=== PATIENT | male | born 1975 | race Caucasian/White ===

== ENCOUNTER 2017-09-23 08:25 | Observation (INO) ==
[2017-09-23] MEDS ORDERED: Ondansetron 4 MG/2 ML VIAL IVP ONE (08:42)
[2017-09-23] MEDS ORDERED: Isovue-370 500 ML INFUS..BTL IV ONE (08:42)
[2017-09-23] MEDS ORDERED: 0.9 % Sodium Chloride 1,000 ML IVC ONE ×2 (08:42→09:21)
[2017-09-23 09:09] LABS: Basophils # 0.1 K/mcL (0.0-0.2); Eosinophils # 0.1 K/mcL (0.0-0.6); Eosinophils % 2.2 %; Hematocrit 45.3 % (37.5-50.1); Hemoglobin 16.4 g/dL (12.9-16.9); Lymphocytes # 1.8 K/mcL (0.6-4.6); Lymphocytes % 34.6 %; Mean Corpuscular HGB Conc 36.2 g/dL (31.6-35.5); Mean Corpuscular Hemoglobin 31.3 pg (28.0-33.3); Mean Corpuscular Volume 86.5 fL (83.0-100.0); Mean Platelet Volume 11.1 fL (9.4-12.4); Monocytes # 0.5 K/mcL (0.0-1.3); Neutrophils # 2.6 K/mcL (1.6-8.9); Platelet Count 198 K/mcL (140-400); Red Blood Count 5.24 M/mcL (4.19-5.50); Red Cell Distribution Width 13.4 % (11.5-14.5); Segmented Neutrophils % 51.2 %
--- NOTE | 2017-09-23 09:11 | Emergency Department Note ---
Disposition Clinical Impression: DKA (diabetic ketoacidoses) Qualifiers: Diabetes mellitus type: type 2 Diabetes mellitus complication detail: without coma Qualified Code(s): E11.10 - Type 2 diabetes mellitus with ketoacidosis without coma Disposition: Admitted As Inpatient Condition: Fair Forms: ED Satisfaction Letter Time of Disposition: 11:38 General Adult HPI - General Chief complaint: ED Nausea/Vomiting/Diarrhea Stated complaint: Nausea, blisters on tongue, wt loss, urinary freq Time Seen by Provider: 09/23/17 08:31 Source: patient Limitations: no limitations Nursing Notes Reviewed: Yes Vital Signs Reviewed: Yes - History of Present Illness HPI Narrative: 42-year-old male with no past medical history but a strong family history of diabetes presents with polyuria and polydipsia for the last month. Patient has not 10 pound weight loss, has mild 7 out of 10 crampy aching epigastric pain. Patient reports nausea and emesis, is also some diarrhea as well. Patient states that he is not a daily drinker. Patient has had no fevers or chills. Onset (ago): hour(s) Pain Severity: moderate Pain Scale: 7 Improves with: nothing Worsens with: nothing Associated symptoms: Reports: nausea/vomiting. Denies: confusion, chest pain, cough, headaches, loss of appetite, shortness of breath Treatments Prior to Arrival: none - Related Data Home Medications Medication Instructions Recorded Confirmed Cyclobenzaprine [Flexeril] 10 mg PO Q8H PRN 09/23/17 09/23/17 Gabapentin [Neurontin] 600 mg PO TID PRN 09/23/17 09/23/17 HYDROcodone/Acet 5/325 mg [[place] 1 tab PO Q12H PRN 09/23/17 09/23/17 5-325 mg] Naproxen [Naprosyn] 500 mg PO Q12H PRN 09/23/17 09/23/17 Allergies Allergy/AdvReac Type Severity Reaction Status Date / Time sulfamethoxazole Allergy Rash Verified 09/23/17 08:27 [From Bactrim] trimethoprim [From Bactrim] Allergy Rash Verified 09/23/17 08:27 All systems ED: reviewed and negative except as stated. Review of Systems: As Per HPI Constitutional: Denies: fever Eyes: Denies: eye pain ENT ED: Denies: ear pain Cardiovascular: Denies: chest pain Respiratory: Denies: cough Gastrointestinal: Reports: as per HPI, abdominal pain, nausea, vomiting Genitourinary: Denies: urgency, dysuria Musculoskeletal: Denies: back pain Integumentary: Denies: rash Neurological: Denies: headache Psychiatric: Denies: anxiety Past Medical History - Past Medical History Attestation: Yes The following information was validated with the patient. Source: patient Medical history: Reports: no medical history Psychiatric history: Reports: no psych history - Social History Smoking Status: Current some day smoker Smokeless Tobacco Status: Yes Alcohol use: Reports: occasionally Drug use: Reports: none Physical Exam Constitutional: Dry mucous membranes. Appears uncomfortable Eyes: PERRLA, sclera anicteric ENT & Mouth: M dry papular inflammation with no sloughing or sores in the mouth. Neck: normal inspection, neck is supple Resp: CTA bilaterally, no resp distress CV: RRR, no m/g/r GI: normal inspection, soft, mild to moderate epigastric pain with no guarding or rigidity. Neuro: A&O3, CNII-XII grossly intact, LEES Skin: on limited exam, skin intact with no rashes or lesions - General Limitations: no limitations General appearance: alert, in no apparent distress Course Course Narrative: Patient with signs and symptoms consistent with possible diabetes with polydipsia and polyuria weight loss, we will check an Accu-Chek give basic lab work CBC BMP and reassess, also an EKG and basic lab work. - Reevaluation(s) Reevaluation #1: Patient with Hyperglycemia, acidosis and AG of 18, insulin gtt started admitted to medicine Dr Guillermo admitted for new onset diabetes and DKA. Time: 11:46 Vital Signs Temperature 98 F 09/23/17 08:27 Pulse Rate 111 09/23/17 08:27 Respiratory Rate 20 09/23/17 08:27 Blood Pressure 162/98 09/23/17 08:27 O2 Sat by Pulse Oximetry 98 09/23/17 08:27 Temperature 98 F 09/23/17 08:51 Pulse Rate 95 09/23/17 11:34 Respiratory Rate 16 09/23/17 11:34 Blood Pressure 125/85 09/23/17 11:34 O2 Sat by Pulse Oximetry 95 09/23/17 11:34 Oxygen Delivery Oxygen Delivery Room Air Medical Decision Making - Medical Records Medical records reviewed: Yes I reviewed the patient's medical records. - Lab Data Lab results reviewed: Yes I reviewed the patient's lab results. Result diagrams: 09/23/17 08:51 09/23/17 08:51 Lab Results 09/23/17 09/23/17 09/23/17 Range/Units 08:51 08:51 08:51 WBC 5.1 (4.3-11.1) K/mcL RBC 5.24 (4.19-5.50) M/mcL Hgb 16.4 (12.9-16.9) g/dL Hct 45.3 (37.5-50.1) % MCV 86.5 (83.0-100.0) fL MCH 31.3 (28.0-33.3) pg MCHC 36.2 H (31.6-35.5) g/dL RDW 13.4 (11.5-14.5) % Plt Count 198 (140-400) K/mcL MPV 11.1 (9.4-12.4) fL Immature Gran % 1.0 (0-4) % Seg Neutrophils % 51.2 % Lymphocytes % 34.6 % Monocytes % 10.0 % Eosinophils % 2.2 % Basophils % 1.0 % Neutrophils # 2.6 (1.6-8.9) K/mcL Lymphocytes # 1.8 (0.6-4.6) K/mcL Monocytes # 0.5 (0.0-1.3) K/mcL Eosinophils # 0.1 (0.0-0.6) K/mcL Basophils # 0.1 (0.0-0.2) K/mcL VBG pH (7.32-7.42) pH Units VBG pCO2 (41-51) mmHg VBG pO2 (25-50) mmHg VBG HCO3 (21-27) mEq/L Sodium 131 L (136-145) mEq/L Potassium 4.4 (3.5-5.1) mEq/L Chloride 97 L (98-107) mEq/L Carbon Dioxide 16 L (23-29) mEq/L BUN 11 (6-20) mg/dL Creatinine 0.83 (0.70-1.30) mg/dL Est GFR ( Amer) > 60 (> 60) Est GFR (Non-Af Amer) > 60 (> 60) BUN/Creatinine Ratio 13 (6-26) Glucose 590 H* (70-105) mg/dL Calculated Osmolality 299 (280-300) Calcium 9.5 (8.6-10.3) mg/dL Total Bilirubin 0.7 (0.3-1.0) mg/dL AST 15 (13-39) Units/L ALT 28 (7-52) Units/L Alkaline Phosphatase 172 H (34-104) Units/L Troponin I < 0.03 (< 0.04) ng/mL Serum Total Protein 6.5 (6.4-8.9) g/dL Albumin 4.2 (3.5-5.7) g/dL Globulin 2.3 L (2.4-3.5) g/dL Albumin/Globulin Ratio 1.8 (1.1-2.2) Lipase 46 (11-82) Units/L Beta-Hydroxybutyric Acd (0.02-0.27) mmol/L Urine Color (Yellow) Urine Clarity (Clear) Urine pH (5.0-8.0) pH Units Ur Specific [place] (1.010-1.025) Urine Protein (Neg-Trace) mg/dL Urine Glucose (UA) (Normal) mg/dL Urine Ketones (Negative) mg/dL Urine Blood (Negative) Urine Nitrite (Negative) Urine Bilirubin (Negative) Urine Urobilinogen (Normal) mg/dL Ur Leukocyte Esterase (Negative) Ur Culture Indicated? (NO) 09/23/17 09/23/17 09/23/17 Range/Units 09:33 09:54 10:00 WBC (4.3-11.1) K/mcL RBC (4.19-5.50) M/mcL Hgb (12.9-16.9) g/dL Hct (37.5-50.1) % MCV (83.0-100.0) fL MCH (28.0-33.3) pg MCHC (31.6-35.5) g/dL RDW (11.5-14.5) % Plt Count (140-400) K/mcL MPV (9.4-12.4) fL Immature Gran % (0-4) % Seg Neutrophils % % Lymphocytes % % Monocytes % % Eosinophils % % Basophils % % Neutrophils # (1.6-8.9) K/mcL Lymphocytes # (0.6-4.6) K/mcL Monocytes # (0.0-1.3) K/mcL Eosinophils # (0.0-0.6) K/mcL Basophils # (0.0-0.2) K/mcL VBG pH 7.29 L (7.32-7.42) pH Units VBG pCO2 40 L (41-51) mmHg VBG pO2 93 H (25-50) mmHg VBG HCO3 19 L (21-27) mEq/L Sodium (136-145) mEq/L Potassium (3.5-5.1) mEq/L Chloride (98-107) mEq/L Carbon Dioxide (23-29) mEq/L BUN (6-20) mg/dL Creatinine (0.70-1.30) mg/dL Est GFR ( Amer) (> 60) Est GFR (Non-Af Amer) (> 60) BUN/Creatinine Ratio (6-26) Glucose (70-105) mg/dL Calculated Osmolality (280-300) Calcium (8.6-10.3) mg/dL Total Bilirubin (0.3-1.0) mg/dL AST (13-39) Units/L ALT (7-52) Units/L Alkaline Phosphatase (34-104) Units/L Troponin I (< 0.04) ng/mL Serum Total Protein (6.4-8.9) g/dL Albumin (3.5-5.7) g/dL Globulin (2.4-3.5) g/dL Albumin/Globulin Ratio (1.1-2.2) Lipase (11-82) Units/L Beta-Hydroxybutyric Acd 1.47 H (0.02-0.27) mmol/L Urine Color Yellow (Yellow) Urine Clarity Clear (Clear) Urine pH 5.5 (5.0-8.0) pH Units Ur Specific [place] > 1.030 H (1.010-1.025) Urine Protein Negative (Neg-Trace) mg/dL Urine Glucose (UA) >=1000 H (Normal) mg/dL Urine Ketones 80 H (Negative) mg/dL Urine Blood Negative (Negative) Urine Nitrite Negative (Negative) Urine Bilirubin Negative (Negative) Urine Urobilinogen Normal (Normal) mg/dL Ur Leukocyte Esterase Negative (Negative) Ur Culture Indicated? NO (NO) - Radiology Data Radiology results reviewed: Yes I reviewed the patient's radiology results. Chest X-Ray 09/23/17 08:44 IMPRESSION: No acute abnormality. D/ / 09/23/2017 09:40:58 Amador Amato MD / luigi Interpreting Provider: Amador Amato MD Abdomen/Pelvis CT 09/23/17 10:00 IMPRESSION: 1. Fatty infiltration of the liver but no focal disease. 2. No acute gastrointestinal abnormality. Normal appendix. D/ / 09/23/2017 10:21:26 Joann Burris MD / Jessica Lynn Interpreting Provider: Joann Burris MD - EKG Data EKG #1 EKG attestation: Yes I reviewed and interpreted this EKG. EKG shows normal: sinus rhythm Rate: tachycardia (Sinus tachycardia [place] 133 QRS 90 QTC [address] segment elevations or depressions no T-wave inversions.)
[2017-09-23 09:21] LABS: Alanine Aminotransferase 28 Units/L (7-52); Albumin 4.2 g/dL (3.5-5.7); Albumin/Globulin Ratio 1.8 (1.1-2.2); Alkaline Phosphatase 172 Units/L (34-104); Aspartate Amino Transferase 15 Units/L (13-39); BUN/Creatinine Ratio 13 (6-26); Bilirubin,Total 0.7 mg/dL (0.3-1.0); Blood Urea Nitrogen 11 mg/dL (6-20); Calcium 9.5 mg/dL (8.6-10.3); Carbon Dioxide 16 mEq/L (23-29); Chloride 97 mEq/L (98-107); Globulin 2.3 g/dL (2.4-3.5); Glucose 590 mg/dL (70-105); Lipase 46 Units/L (11-82); Osmolality,Calculated 299 (280-300); Potassium 4.4 mEq/L (3.5-5.1); Sodium 131 mEq/L (136-145); Total Protein 6.5 g/dL (6.4-8.9); eGFR For African Americans > 60 (> 60); eGFR For Non-African Americans > 60 (> 60)
--- NOTE | 2017-09-23 10:03 | Emergency Department Note ---
Disposition Clinical Impression: DKA (diabetic ketoacidoses) Disposition: Admitted As Inpatient Condition: Fair Referrals: NONE,PCP [Primary Care Provider] - Forms: ED Satisfaction Letter General Adult HPI - General Chief complaint: ED Nausea/Vomiting/Diarrhea Stated complaint: Nausea, blisters on tongue, wt loss, urinary freq Time Seen by Provider: 09/23/17 08:31 Source: patient Limitations: no limitations - History of Present Illness Pain Scale: 7 - Related Data Home Medications Medication Instructions Recorded Confirmed Cyclobenzaprine [Flexeril] 10 mg PO Q8H PRN 09/23/17 09/23/17 Gabapentin [Neurontin] 600 mg PO TID PRN 09/23/17 09/23/17 HYDROcodone/Acet 5/325 mg [[place] 1 tab PO Q12H PRN 09/23/17 09/23/17 5-325 mg] Naproxen [Naprosyn] 500 mg PO Q12H PRN 09/23/17 09/23/17 Allergies Allergy/AdvReac Type Severity Reaction Status Date / Time sulfamethoxazole Allergy Rash Verified 09/23/17 08:27 [From Bactrim] trimethoprim [From Bactrim] Allergy Rash Verified 09/23/17 08:27 Past Medical History - Past Medical History Medical history: Reports: no medical history Psychiatric history: Reports: no psych history - Social History Smoking Status: Current some day smoker Smokeless Tobacco Status: Yes Alcohol use: Reports: occasionally Drug use: Reports: none Physical Exam - General Limitations: no limitations General appearance: alert, in no apparent distress Course Vital Signs Temperature 98 F 09/23/17 08:27 Pulse Rate 111 09/23/17 08:27 Respiratory Rate 20 09/23/17 08:27 Blood Pressure 162/98 09/23/17 08:27 O2 Sat by Pulse Oximetry 98 09/23/17 08:27 Temperature 98 F 09/23/17 08:51 Pulse Rate 95 09/23/17 11:34 Respiratory Rate 16 09/23/17 11:34 Blood Pressure 125/85 09/23/17 11:34 O2 Sat by Pulse Oximetry 95 09/23/17 11:34 Oxygen Delivery Oxygen Delivery Room Air Medical Decision Making - Lab Data Result diagrams: 09/23/17 08:51 09/23/17 08:51 Lab Results 09/23/17 09/23/17 09/23/17 Range/Units 08:51 08:51 08:51 WBC 5.1 (4.3-11.1) K/mcL RBC 5.24 (4.19-5.50) M/mcL Hgb 16.4 (12.9-16.9) g/dL Hct 45.3 (37.5-50.1) % MCV 86.5 (83.0-100.0) fL MCH 31.3 (28.0-33.3) pg MCHC 36.2 H (31.6-35.5) g/dL RDW 13.4 (11.5-14.5) % Plt Count 198 (140-400) K/mcL MPV 11.1 (9.4-12.4) fL Immature Gran % 1.0 (0-4) % Seg Neutrophils % 51.2 % Lymphocytes % 34.6 % Monocytes % 10.0 % Eosinophils % 2.2 % Basophils % 1.0 % Neutrophils # 2.6 (1.6-8.9) K/mcL Lymphocytes # 1.8 (0.6-4.6) K/mcL Monocytes # 0.5 (0.0-1.3) K/mcL Eosinophils # 0.1 (0.0-0.6) K/mcL Basophils # 0.1 (0.0-0.2) K/mcL VBG pH (7.32-7.42) pH Units VBG pCO2 (41-51) mmHg VBG pO2 (25-50) mmHg VBG HCO3 (21-27) mEq/L Sodium 131 L (136-145) mEq/L Potassium 4.4 (3.5-5.1) mEq/L Chloride 97 L (98-107) mEq/L Carbon Dioxide 16 L (23-29) mEq/L BUN 11 (6-20) mg/dL Creatinine 0.83 (0.70-1.30) mg/dL Est GFR ( Amer) > 60 (> 60) Est GFR (Non-Af Amer) > 60 (> 60) BUN/Creatinine Ratio 13 (6-26) Glucose 590 H* (70-105) mg/dL Calculated Osmolality 299 (280-300) Calcium 9.5 (8.6-10.3) mg/dL Total Bilirubin 0.7 (0.3-1.0) mg/dL AST 15 (13-39) Units/L ALT 28 (7-52) Units/L Alkaline Phosphatase 172 H (34-104) Units/L Troponin I < 0.03 (< 0.04) ng/mL Serum Total Protein 6.5 (6.4-8.9) g/dL Albumin 4.2 (3.5-5.7) g/dL Globulin 2.3 L (2.4-3.5) g/dL Albumin/Globulin Ratio 1.8 (1.1-2.2) Lipase 46 (11-82) Units/L Beta-Hydroxybutyric Acd (0.02-0.27) mmol/L Urine Color (Yellow) Urine Clarity (Clear) Urine pH (5.0-8.0) pH Units Ur Specific [place] (1.010-1.025) Urine Protein (Neg-Trace) mg/dL Urine Glucose (UA) (Normal) mg/dL Urine Ketones (Negative) mg/dL Urine Blood (Negative) Urine Nitrite (Negative) Urine Bilirubin (Negative) Urine Urobilinogen (Normal) mg/dL Ur Leukocyte Esterase (Negative) Ur Culture Indicated? (NO) 09/23/17 09/23/17 09/23/17 Range/Units 09:33 09:54 10:00 WBC (4.3-11.1) K/mcL RBC (4.19-5.50) M/mcL Hgb (12.9-16.9) g/dL Hct (37.5-50.1) % MCV (83.0-100.0) fL MCH (28.0-33.3) pg MCHC (31.6-35.5) g/dL RDW (11.5-14.5) % Plt Count (140-400) K/mcL MPV (9.4-12.4) fL Immature Gran % (0-4) % Seg Neutrophils % % Lymphocytes % % Monocytes % % Eosinophils % % Basophils % % Neutrophils # (1.6-8.9) K/mcL Lymphocytes # (0.6-4.6) K/mcL Monocytes # (0.0-1.3) K/mcL Eosinophils # (0.0-0.6) K/mcL Basophils # (0.0-0.2) K/mcL VBG pH 7.29 L (7.32-7.42) pH Units VBG pCO2 40 L (41-51) mmHg VBG pO2 93 H (25-50) mmHg VBG HCO3 19 L (21-27) mEq/L Sodium (136-145) mEq/L Potassium (3.5-5.1) mEq/L Chloride (98-107) mEq/L Carbon Dioxide (23-29) mEq/L BUN (6-20) mg/dL Creatinine (0.70-1.30) mg/dL Est GFR ( Amer) (> 60) Est GFR (Non-Af Amer) (> 60) BUN/Creatinine Ratio (6-26) Glucose (70-105) mg/dL Calculated Osmolality (280-300) Calcium (8.6-10.3) mg/dL Total Bilirubin (0.3-1.0) mg/dL AST (13-39) Units/L ALT (7-52) Units/L Alkaline Phosphatase (34-104) Units/L Troponin I (< 0.04) ng/mL Serum Total Protein (6.4-8.9) g/dL Albumin (3.5-5.7) g/dL Globulin (2.4-3.5) g/dL Albumin/Globulin Ratio (1.1-2.2) Lipase (11-82) Units/L Beta-Hydroxybutyric Acd 1.47 H (0.02-0.27) mmol/L Urine Color Yellow (Yellow) Urine Clarity Clear (Clear) Urine pH 5.5 (5.0-8.0) pH Units Ur Specific [place] > 1.030 H (1.010-1.025) Urine Protein Negative (Neg-Trace) mg/dL Urine Glucose (UA) >=1000 H (Normal) mg/dL Urine Ketones 80 H (Negative) mg/dL Urine Blood Negative (Negative) Urine Nitrite Negative (Negative) Urine Bilirubin Negative (Negative) Urine Urobilinogen Normal (Normal) mg/dL Ur Leukocyte Esterase Negative (Negative) Ur Culture Indicated? NO (NO) Critical Care Time Critical Care Time: Yes Total Critical Care Time: 35 Attestation: Critical care performed: Time is exclusive of separately billable procedures. Time includes: direct patient care, patient reassessment, coordination of patient care, interpretation of data (laboratory data, radiology data, and respiratory data), review of patient's medical records, medical consultation and documentation of patient care. Procedures included in critical care time: Procedures excluded from critical care time: Attestation Statement - Attestation Attestation: I examined this patient and my medical decision-making was reviewed with the Resident Physician. I agree with the documented findings, disposition and treatment plan as described except to the extent set forth below. Patient presents to the ED with weight loss. Epigastric pain. Painful tongue. Polydipsia and polyuria. Concern for diabetes. He is in no distress on examination with mild epigastric tenderness. I do not appreciate any blisters to his tongue. He does have some inflamed papula. Plan. DKA workup. Blood sugar was 500 with an increased anion gap. We will start insulin drip. IV fluids. Likely admission. Patient admitted. IV insulin started.
[2017-09-23 10:04] LABS: VBG HCO3 19 mEq/L (21-27); VBG PCO2 40 mmHg (41-51); VBG PH 7.29 pH Units (7.32-7.42); VBG PO2 93 mmHg (25-50)
[2017-09-23 10:21] LABS: Bilirubin,Urine Negative (Negative); Blood,Urine Negative (Negative); Clarity,Urine Clear (Clear); Color,Urine Yellow (Yellow); Glucose,Urine (UA) >=1000 mg/dL (Normal); Ketones,Urine 80 mg/dL (Negative); Leukocyte Esterase,Urine Negative (Negative); Nitrite,Urine Negative (Negative); PH,Urine 5.5 pH Units (5.0-8.0); Protein,Urine Negative (Neg-Trace); Specific Gravity,Urine > 1.030 (1.010-1.025); Urobilinogen,Urine Normal (Normal)
[2017-09-23] MEDS: Insulin Human Regular 100 UNIT in 0.9 % Sodium Chloride 100 ML IVC SCH ×2 (11:26→22:31)
--- NOTE | 2017-09-23 13:10 | Internal Med History&Physical ---
Date of Encounter: 09/23/17 Time of Encounter: 13:08 Internal Medicine - H&P: HPI Chief complaint: DKA Admitted From: Home Plans for Post Hospital Care: Home History of present illness: Mr. Shields is a 42 year old male who is morbidly obese, has no significant medical history presenting emergency room for polydipsia polyuria and weight loss for 2 months. He lost 61 pounds over last 2 months. Patient does have some burry vision, but denies any chest pain no numbing tingling to the feet and hands. He complains of nausea and reduced appetite last few days. Denies fever or chills no constipation diarrhea. Lab shows pH 7.29 glucose 590 troponin less than 003 beta hydroxybutyrate acid 1.47 Chest x-ray is negative. Patient is going to be admitted for new onset diabetes , DKA, continue insulin drip consult the clinical unit educator . Past Med Surg Social Fam HX - Past Medical History Medical history: no medical history Additional medical history: Back Pain Psychiatric history: no psych history - Past Surgical History Additional surgical history: knee scope - Social History Smoking Status: Current some day smoker Smokeless Tobacco Status: Yes Alcohol use: occasionally Drug use: none Internal Medicine - H&P: Meds Cyclobenzaprine [Flexeril] 10 mg PO Q8H PRN 09/23/17 [History] Gabapentin [Neurontin] 600 mg PO TID PRN 09/23/17 [History] HYDROcodone/Acet 5/325 mg [[place] 5-325 mg] 1 tab PO Q12H PRN 09/23/17 [History] Naproxen [Naprosyn] 500 mg PO Q12H PRN 09/23/17 [History] 3 Allergy/AdvReac Type Severity Reaction Status Date / Time sulfamethoxazole Allergy Rash Verified 09/23/17 08:27 [From Bactrim] trimethoprim [From Bactrim] Allergy Rash Verified 09/23/17 08:27 All Systems PM: A 10-system review of systems was performed and is negative for pertinent findings except as documented above in the HPI. - Constitutional Vitals: Temp Pulse Resp BP Pulse Ox 98 F 95 16 125/85 95 09/23/17 08:51 09/23/17 11:34 09/23/17 11:34 09/23/17 11:34 09/23/17 11:34 General appearance: Present: A&O X 3, obese Exam: CONSTITUTIONAL: Patient appears as an age appropriate male well developed, in no acute distress. EYES Clear sclerae, bilateral pupils are equal, reactive to light and accommodation. Extraocular movements are intact RESPIRATORY: No accessory muscle use, bilateral clear to auscultation, no wheezing, no crackles/rales. CARDIOVASCULAR: Regular heart rate, normal S1 and S2, no murmurs GASTROINTESTINAL: bowel sounds present, soft, no tenderness. No hepatosplenomegaly. No bilateral CVA tenderness MUSCULOSKELETAL: Joints in normal range of motion, no clubbing, no edema, no cyanosis. Bilateral peripheral pulses 2+ LYMPHATIC no lymphadenopathy in neck, groin and axilla bilaterally, no thyromegaly. NEUROLOGIC: CN II to XII are grossly intact, no focal neurological deficit. Deep tendon reflexes 2+ bilaterally. Normal light touch sensation to upper and lower extremity PSYCHIATRIC: Oriented x3, with good insight, mood is euthymic. No hallucinations or delusions. SKIN: Skin warm and dry, no rashes, no open wound. Internal Med - H&P Results - Labs CBC & Chem 7: 09/23/17 08:51 09/23/17 08:51 Labs: Short CBC 09/23/17 Range/Units 08:51 WBC 5.1 (4.3-11.1) K/mcL Hgb 16.4 (12.9-16.9) g/dL Hct 45.3 (37.5-50.1) % Plt Count 198 (140-400) K/mcL Neutrophils # 2.6 (1.6-8.9) K/mcL BMP 09/23/17 08:51 Sodium 131 L Potassium 4.4 Chloride 97 L Carbon Dioxide 16 L BUN 11 Creatinine 0.83 Glucose 590 H* Calcium 9.5 Cardiac Enzymes 09/23/17 Range/Units 08:51 Troponin I < 0.03 (< 0.04) ng/mL Liver Function 09/23/17 Range/Units 08:51 Total Bilirubin 0.7 (0.3-1.0) mg/dL AST 15 (13-39) Units/L ALT 28 (7-52) Units/L Alkaline Phosphatase 172 H (34-104) Units/L Albumin 4.2 (3.5-5.7) g/dL Urine 06/06/18 Range/Units 09:54 Urine Color Yellow (Yellow) Urine Clarity Clear (Clear) Urine pH 5.5 (5.0-8.0) pH Units Ur Specific [place] > 1.030 H (1.010-1.025) Urine Protein Negative (Neg-Trace) mg/dL Urine Glucose (UA) >=1000 H (Normal) mg/dL - ABG Interpretation ABG results: 09/23/17 10:00 VBG pH 7.29 L VBG pCO2 40 L VBG pO2 93 H VBG HCO3 19 L - Impressions ITS Impressions Chest X-Ray 09/23/17 08:44 IMPRESSION: No acute abnormality. D/ / 09/23/2017 09:40:58 Amador Amato MD / luigi Interpreting Provider: Amador Amato MD Abdomen/Pelvis CT 09/23/17 10:00 IMPRESSION: 1. Fatty infiltration of the liver but no focal disease. 2. No acute gastrointestinal abnormality. Normal appendix. D/ / 09/23/2017 10:21:26 Joann Burris MD / Jessica Lynn Interpreting Provider: Joann Burris MD - Assessment and plan (1) DKA (diabetic ketoacidoses) Current Visit: Yes Status: Acute Assessment and plan: Continue insulin per DKA protocol Qualifiers: Diabetes mellitus type: type 2 Diabetes mellitus complication detail: without coma Qualified Code(s): E11.10 - Type 2 diabetes mellitus with ketoacidosis without coma (2) DM type 2 (diabetes mellitus, type 2) Current Visit: Yes Status: Acute Assessment and plan: New-onset diabetes type 2, we will consult clinical unit educator for diet modification, continue insulin drip Qualifiers: Diabetes mellitus termite exterminator insulin use: unspecified jail insulin use status Diabetes mellitus complication status: without complication Qualified Code(s): E11.9 - Type 2 diabetes mellitus without complications (3) Morbid obesity due to excess calories Current Visit: Yes Status: Chronic Assessment and plan: Lifestyle modification discussed, we will consult to nutrition - Time Spent With Patient Total time spent is greater than 50% in coordination of care (as documented) at patient's floor/unit and/or counseling patient: Greater than 35 minutes
[2017-09-23] MEDS ORDERED: *HR* Dextrose 50 % in Water (Syg) 50 ML SYRINGE IVP PRN (13:17)
[2017-09-23] MEDS ORDERED: D5% in 0.45% NACL 1,000 ML IVC PRN (13:17)
[2017-09-23] MEDS ORDERED: Naloxone 0.4 MG/ML INJ IVP PRN (13:33)
[2017-09-23 14:14] LABS: BUN/Creatinine Ratio 13 (6-26); Blood Urea Nitrogen 9 mg/dL (6-20); Calcium 9.3 mg/dL (8.6-10.3); Carbon Dioxide 20 mEq/L (23-29); Chloride 104 mEq/L (98-107); Glucose 227 mg/dL (70-105); Magnesium 2.1 mg/dL (1.6-2.6); Osmolality,Calculated 290 (280-300); Potassium 3.4 mEq/L (3.5-5.1); Sodium 137 mEq/L (136-145); eGFR For African Americans > 60 (> 60); eGFR For Non-African Americans > 60 (> 60)
[2017-09-23] MEDS: 0.45 % Sodium Chloride w/KCl 20 MEQ/1,000 ML MLS IVC SCH ×2 (16:51→19:00)
[2017-09-23 17:49] LABS: BUN/Creatinine Ratio 11 (6-26); Blood Urea Nitrogen 9 mg/dL (6-20); Calcium 9.2 mg/dL (8.6-10.3); Carbon Dioxide 23 mEq/L (23-29); Chloride 106 mEq/L (98-107); Glucose 209 mg/dL (70-105); Osmolality,Calculated 293 (280-300); Potassium 3.6 mEq/L (3.5-5.1); Sodium 139 mEq/L (136-145); eGFR For African Americans > 60 (> 60); eGFR For Non-African Americans > 60 (> 60)
--- NOTE | 2017-09-23 18:18 | Electrocardiograph Report ---
[place] [id number] Test Date: 2017-09-23 Pat Name: Bala Shields Department: 103 Room: 2N09 Gender: Dial Brusher: : 1975 Requested By: Caleb Sanchez Order Number: [id number] Reading MD: Dimitri Lantigua Measurements Intervals [place] Rate: 105 P: 60 [place]: 133 QRS: -33 QRSD: 90 T: 7 QT: 331 QTc: 392 Interpretive Statements SINUS TACHYCARDIA MARKED LEFT AXIS DEVIATION Poor R wave progression Electronically Signed On 09-23-2017 18:17:07 EDT by Dimitri Lantigua
[2017-09-23] MEDS ORDERED: D5% in 0.45% NACL w KCl 20 MEQ/1,000 ML MLS IVC ONE (19:25)
[2017-09-23] MEDS: D5% in 0.45% NACL w KCl 20 MEQ/1,000 ML MLS IVC PRN ×2 (19:25→23:04)
[2017-09-23] MEDS ORDERED: Acetaminophen 325 MG TABLET PO PRN (20:05)
[2017-09-23 21:58] LABS: BUN/Creatinine Ratio 13 (6-26); Blood Urea Nitrogen 9 mg/dL (6-20); Calcium 9.1 mg/dL (8.6-10.3); Carbon Dioxide 24 mEq/L (23-29); Chloride 105 mEq/L (98-107); Glucose 136 mg/dL (70-105); Osmolality,Calculated 291 (280-300); Potassium 3.3 mEq/L (3.5-5.1); Sodium 140 mEq/L (136-145); eGFR For African Americans > 60 (> 60); eGFR For Non-African Americans > 60 (> 60)
[2017-09-23 23:55] LABS: ABG Base Excess 0 mEq/L (-2 to 3); ABG HCO3 25 mEq/L (21-27); ABG Oxygen Saturation 96 % (95-98); ABG PCO2 41 mmHg (35-45); ABG PH 7.39 pH Units (7.32-7.45); ABG PO2 86 mmHg (85-104); ABG TCO2 26 mEq/L (20-26)
[2017-09-24] MEDS ORDERED: *HR* Dextrose 50 % in Water (Syg) 50 ML SYRINGE IVP PRN (01:07)
[2017-09-24] MEDS ORDERED: D5% in Water 1,000 ML IVC PRN (01:07)
[2017-09-24] MEDS ORDERED: Dextrose Gel 15 GM/37.5 ML TUBE PO PRN ×2 (01:07)
[2017-09-24] MEDS ORDERED: Insulin DETEMIR 100 UNIT/ML X5UNITS SQ SCH ×2 (01:15→21:00)
[2017-09-24] MEDS: 0.9 % Sodium Chloride 1,000 ML IVC SCH (01:18)
[2017-09-24 04:29] LABS: Basophils % 0.5 %; Eosinophils # 0.2 K/mcL (0.0-0.6); Eosinophils % 3.4 %; Hematocrit 41.7 % (37.5-50.1); Immature Granulocytes % 0.9 % (0-4); Lymphocytes # 2.3 K/mcL (0.6-4.6); Lymphocytes % 38.6 %; Mean Corpuscular Hemoglobin 30.3 pg (28.0-33.3); Mean Corpuscular Volume 86.5 fL (83.0-100.0); Mean Platelet Volume 11.1 fL (9.4-12.4); Monocytes # 0.7 K/mcL (0.0-1.3); Monocytes % 11.5 %; Neutrophils # 2.6 K/mcL (1.6-8.9); Nucleated Red Blood Cells 0.3 /100 WBC (0); Platelet Count 184 K/mcL (140-400); Red Blood Count 4.82 M/mcL (4.19-5.50); Red Cell Distribution Width 13.4 % (11.5-14.5); Segmented Neutrophils % 45.1 %
[2017-09-24 04:31] LABS: Hemoglobin 14.6 g/dL (12.9-16.9)
[2017-09-24 04:45] LABS: BUN/Creatinine Ratio 15 (6-26); Blood Urea Nitrogen 10 mg/dL (6-20); Carbon Dioxide 23 mEq/L (23-29); Chloride 106 mEq/L (98-107); Chol/HDL Ratio 7.8 (0-4.9); Glucose 225 mg/dL (70-105); Magnesium 1.9 mg/dL (1.6-2.6); Osmolality,Calculated 296 (280-300); Phosphorous 3.9 mg/dL (2.7-4.5); Potassium 3.5 mEq/L (3.5-5.1); Sodium 140 mEq/L (136-145); eGFR For African Americans > 60 (> 60); eGFR For Non-African Americans > 60 (> 60)
[2017-09-24] MEDS: Insulin LISPRO 300 UNITS/3 ML VIAL SQ SCH ×3 (07:13→16:51)
[2017-09-24 12:27] LABS: Estimated Average Glucose 324 mg/dl; Hemoglobin A1C 12.9 %
--- NOTE | 2017-09-24 16:53 | Internal Med Progress Note ---
Date of Encounter: 09/24/17 Time of Encounter: 16:51 - Assessment and plan (1) DKA (diabetic ketoacidoses) Current Visit: Yes Status: Acute Assessment and plan: Resolved A1C 12.9 % Has completed diabetes education Starting long acting insulin Levemir tonight. Try 25 units and monitor tomorrow for insulin prescribing on discharge. Continue DM diet Continue ISS Qualifiers: Diabetes mellitus type: type 2 Diabetes mellitus complication detail: without coma Qualified Code(s): E11.10 - Type 2 diabetes mellitus with ketoacidosis without coma (2) DM type 2 (diabetes mellitus, type 2) Current Visit: Yes Status: Acute Assessment and plan: Plan as above. Qualifiers: Diabetes mellitus longterm insulin use: unspecified meterman insulin use status Diabetes mellitus complication status: without complication Qualified Code(s): E11.9 - Type 2 diabetes mellitus without complications (3) Morbid obesity due to excess calories Current Visit: Yes Status: Chronic - Time Spent With Patient Total time spent is greater than 50% in coordination of care (as documented) at patient's floor/unit and/or counseling patient: - Subjective Interval history: No acute events. Patient states no longer feels dehydrated, no longer with polydipsia, denies n/v now. - Constitutional Vitals: Temp Pulse Resp BP Pulse Ox 98.6 F 90 18 148/97 96 09/24/17 15:51 09/24/17 15:51 09/24/17 15:51 09/24/17 15:51 09/24/17 15:51 General appearance: Present: A&O X 3, obese - Head Head exam: Present: atraumatic, normocephalic - Eye Eye exam: Present: PERRL, conjuntiva pink, sclera anicteric Pupils: Present: PERRL - Neck Neck exam general surgery: Present: supple, trachea midline. Absent: lymphadenopathy - Respiratory Respiratory exam: Present: CTAB. Absent: accessory muscle use, rales, rhonchi, wheezes - Cardiovascular Cardiovascular exam: Present: RRR, +S1, +S2. Absent: diastolic murmur, gallop, rubs, systolic murmur - GI/Abdominal GI/Abdominal exam: Present: normal bowel sounds, soft, no peritoneal signs. Absent: distended, tenderness - Extremities Exam Extremities exam: Present: warm, radial pulses palpable and symmetrical. Absent : calf tenderness, cyanotic, pedal edema - Neurological Exam Neurological exam: Present: CN II-XII intact, oriented X3, no focal deficits. Absent: pronater drift, facial droop, speech deficit - Skin Skin exam: Present: dry, intact Internal Medicine: Result - Labs CBC & Chem 7: 09/24/17 03:41 09/24/17 03:41 Labs: Short CBC 09/24/17 Range/Units 03:41 WBC 5.8 (4.3-11.1) K/mcL Hgb 14.6 D (12.9-16.9) g/dL Hct 41.7 (37.5-50.1) % Plt Count 184 (140-400) K/mcL Neutrophils # 2.6 (1.6-8.9) K/mcL BMP 09/23/17 09/23/17 09/24/17 17:13 21:10 03:41 Sodium 139 140 140 Potassium 3.6 3.3 L 3.5 Chloride 106 105 106 Carbon Dioxide 23 24 23 BUN 9 9 10 Creatinine 0.80 0.69 L 0.67 L Glucose 209 H 136 H 225 H Calcium 9.2 9.1 9.0 - ABG Interpretation ABG results: ABG ABG pH 7.39 pH Units (7.32-7.45) 09/23/17 23:52 ABG pCO2 41 mmHg (35-45) 09/23/17 23:52 ABG pO2 86 mmHg (85-104) 09/23/17 23:52 ABG O2 Saturation 96 % (95-98) 09/23/17 23:52 Consult Discharge Plan - Plan Referrals: Jorge Luis Joshi MD [Partnered Physician] - (Office will call patient at home with follow up appointment/if doctor accepts patient)
[2017-09-24] MEDS ORDERED: Insulin LISPRO 300 UNITS/3 ML VIAL SQ SCH (21:00)
[2017-09-25 06:41] LABS: Basophils % 0.9 %; Eosinophils # 0.1 K/mcL (0.0-0.6); Eosinophils % 2.6 %; Hematocrit 40.9 % (37.5-50.1); Hemoglobin 14.4 g/dL (12.9-16.9); Immature Granulocytes % 1.1 % (0-4); Lymphocytes # 1.7 K/mcL (0.6-4.6); Lymphocytes % 35.7 %; Mean Corpuscular HGB Conc 35.2 g/dL (31.6-35.5); Mean Corpuscular Hemoglobin 30.1 pg (28.0-33.3); Mean Corpuscular Volume 85.4 fL (83.0-100.0); Monocytes # 0.7 K/mcL (0.0-1.3); Monocytes % 14.9 %; Neutrophils # 2.1 K/mcL (1.6-8.9); Platelet Count 171 K/mcL (140-400); Red Blood Count 4.79 M/mcL (4.19-5.50); Red Cell Distribution Width 13.4 % (11.5-14.5); Segmented Neutrophils % 44.8 %
[2017-09-25 06:53] LABS: BUN/Creatinine Ratio 12 (6-26); Blood Urea Nitrogen 8 mg/dL (6-20); Carbon Dioxide 24 mEq/L (23-29); Chloride 100 mEq/L (98-107); Glucose 392 mg/dL (70-105); Osmolality,Calculated 291 (280-300); Potassium 3.2 mEq/L (3.5-5.1); Sodium 133 mEq/L (136-145); eGFR For African Americans > 60 (> 60); eGFR For Non-African Americans > 60 (> 60)
[2017-09-25] MEDS ORDERED: Insulin DETEMIR 100 UNIT/ML X5UNITS SQ ONE (08:37)
[2017-09-25] MEDS: Insulin LISPRO 300 UNITS/3 ML VIAL SQ SCH ×3 (09:13→17:24)
[2017-09-25 11:06] VITALS: BP 130/84
--- NOTE | 2017-09-25 15:42 | Discharge Summary ---
- NOTES TO OUTPATIENT PROVIDER Notes to Outpatient Provider: Follow-up glucose levels. Orders not resulted at time of discharge: Pending orders 09/26/17 04:00 BMP [Basic Metabolic Panel] AM 0400 Complete Blood Count [HEME] AM 0400 09/27/17 04:00 BMP [Basic Metabolic Panel] AM 0400 Complete Blood Count [HEME] AM 0400 Date of Encounter: 09/25/17 Time of Encounter: 15:40 - Discharge Diagnosis (1) DKA (diabetic ketoacidoses) Priority: Primary Status: Acute Qualifiers: Diabetes mellitus type: type 2 Diabetes mellitus complication detail: without coma Qualified Code(s): E11.10 - Type 2 diabetes mellitus with ketoacidosis without coma (2) DM type 2 (diabetes mellitus, type 2) Priority: Secondary Status: Acute Qualifiers: Diabetes mellitus medical terminologist insulin use: unspecified snf insulin use status Diabetes mellitus complication status: without complication Qualified Code(s): E11.9 - Type 2 diabetes mellitus without complications (3) Morbid obesity due to excess calories Priority: Secondary Status: Chronic Hospital course: Mr. Shields is a 42 year old male who is morbidly obese, has no significant medical history presenting emergency room for polydipsia polyuria and weight loss for 2 months. He lost 61 pounds over last 2 months. Patient does have some burry vision, but denies any chest pain no numbing tingling to the feet and hands. He complains of nausea and reduced appetite last few days. Denies fever or chills no constipation diarrhea. Lab shows pH 7.29 glucose 590 troponin less than 003 beta hydroxybutyrate acid 1.47. Chest x-ray is negative. Patient was admitted for DKA and placed on insulin drip and treated per DKA protocol. He was transitioned to subcutaneous insulin. A1C was 12.9% consistent with glucose at home running 300s. He will be discharged on Lantus and novalog pen prescriptions (after reviewing insurance this was most acceptable formulary). Patient discharged in stable condition. - Time Spent with Patient Total time spent providing and/or coordinating discharge services: - Discharge Medications Home Medications: Cyclobenzaprine [Flexeril] 10 mg PO Q8H PRN 09/23/17 [History] Gabapentin [Neurontin] 600 mg PO TID PRN 09/23/17 [History] HYDROcodone/Acet 5/325 mg [[place] 5-325 mg] 1 tab PO Q12H PRN 09/23/17 [History] Naproxen [Naprosyn] 500 mg PO Q12H PRN 09/23/17 [History] Allergies/Adverse Reactions: 3 Allergy/AdvReac Type Severity Reaction Status Date / Time sulfamethoxazole Allergy Rash Verified 09/23/17 08:27 [From Bactrim] trimethoprim [From Bactrim] Allergy Rash Verified 09/23/17 08:27 Date of admission: 09/23/17 15:16 Primary care physician: PCP NONE Consults: 09/23/17 17:13 Consult to Nutrition [CONS] Routine Comment: Consulting Provider: NUTRITION Reason for Dietary Consult: MST Score Diet Education Discharging clinician: Rita Church - Constitutional Vitals: Temp Pulse Resp BP Pulse Ox 98.0 F 84 16 130/84 95 09/25/17 11:04 09/25/17 11:04 09/25/17 11:04 09/25/17 11:04 09/25/17 11:04 General appearance: Present: A&O X 3, obese - Head Head exam: Present: atraumatic, normocephalic - Eye Eye exam: Present: PERRL, conjuntiva pink, sclera anicteric Pupils: Present: PERRL - Neck Neck exam general surgery: Present: supple, trachea midline. Absent: lymphadenopathy - Respiratory Respiratory exam: Present: CTAB. Absent: accessory muscle use, rales, rhonchi, wheezes - Cardiovascular Cardiovascular exam: Present: RRR, +S1, +S2. Absent: diastolic murmur, gallop, rubs, systolic murmur - GI/Abdominal GI/Abdominal exam: Present: normal bowel sounds, soft, no peritoneal signs. Absent: distended, tenderness - Extremities Exam Extremities exam: Present: warm, radial pulses palpable and symmetrical. Absent : calf tenderness, cyanotic, pedal edema - Neurological Exam Neurological exam: Present: CN II-XII intact, oriented X3, no focal deficits. Absent: pronater drift, facial droop, speech deficit - Skin Skin exam: Present: dry, intact - Patient Status Disposition: Home, Self-Care Condition: Fair Functional capacity at discharge: independent ambulation Overall status at discharge: patient is back to baseline - Discharge Instructions Follow Up With: Benita Cherry CNP [Advanced Practice Nurse] - 10/02/17 9:45 am (Please take your new patient packet filled out to your appointment. If you don't receive your new patient packet please arrive 30 minutes early to fill out paper work. Please take your picture ID, INS Card, a list of all medications including over the counter. Show up 15 mins early if you receive your new patient packet, if not 30 mins early. If you need to cancel please call [phone] within 24 hours of your appointment) - Diet and Activity Activity: increase activity as tolerated Diet: diabetic diet
[2017-09-25] MEDS ORDERED: Insulin DETEMIR 100 UNIT/ML X5UNITS SQ SCH (23:00)
== END 2017-09-25 17:51 | disposition home or self-care (01) ==
LOC: SUATTDRO → EMEROO 08:25 → 2NNU 08:25
PROVIDERS: ADMIT Hospitalist; ATTEND Hospitalist